=== PATIENT | female | born 1940 | race Caucasian/White ===

== ENCOUNTER → 2017-01-05 | Outpatient (CLI) | payer MEDICARE ==
[~2017-01-05] MED LIST: ASPI325T80 PO; DOCU-180 PO; MULT-717 PO; MULT1TAB11 PO; OMEP-110 PO; OXYC10TA6 PO; OXYC5CAP2 PO; TRAM50TA2 PO; VIT1CAPS10 PO
== END | disposition home or self-care (01) ==
LOC: CFH 14:18
PROVIDERS: ATTEND Family Medicine
DX: Z13.820 Encounter for screening for osteoporosis (principal); N95.8 Other specified menopausal and perimenopausal disorders
CPT/HCPCS: 77080